=== PATIENT | male | born 1975 | race Caucasian/White ===

== ENCOUNTER 2017-08-16 15:51 | Emergency (ER) | payer OTHER, MEDICAID ==
[~2017-08-16] VITALS: Ht 172.7 cm; Wt 161.5 kg
[~2017-08-16 15:51] MED LIST: GABA800T PO; OMEP40CA2 PO; OXYC-396 PO; VENTAER INH
[2017-08-16 15:57] VITALS: BP 171/80; PULSE 68; RESP 16; TEMP 98.5; O2SAT 97
[2017-08-16] MEDS ORDERED: NON-325T2 PO (16:12)
[2017-08-16] MEDS ORDERED: SUCR1TAB PO (16:12)
[2017-08-16] MEDS ORDERED: MULTTAB67 PO (16:12)
[2017-08-16] MEDS ORDERED: IRONTAB5 PO (16:12)
[2017-08-16] MEDS ORDERED: FENT50DI T-DERMAL (16:12)
[2017-08-16] MEDS ORDERED: RANI300T PO (16:12)
[2017-08-16] MEDS ORDERED: APIX5TAB PO (16:12)
[2017-08-16] MEDS ORDERED: OXYC-426 PO (16:12)
[2017-08-16] MEDS ORDERED: CYAN100025 SL (16:12)
[2017-08-16] MEDS ORDERED: CALCTAB19 PO (16:12)
[2017-08-16] MEDS ORDERED: MONT10TA4 PO (16:12)
[2017-08-16] MEDS ORDERED: IBUP-232 PO (17:04)
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
== END 2017-08-16 17:35 | disposition home or self-care (01) ==
LOC: PHEFT 15:51
DX: M25.552 Pain in left hip (principal); M25.551 Pain in right hip; G89.29 Other chronic pain; M87.852 Other osteonecrosis, left femur; M87.851 Other osteonecrosis, right femur; E11.9 Type 2 diabetes mellitus without complications; I10 Essential (primary) hypertension; Z72.0 Tobacco use; Z76.0 Encounter for issue of repeat prescription
CPT/HCPCS: 99283

== ENCOUNTER → 2017-10-19 | Outpatient (CLI) | payer OTHER, MEDICAID ==
[~2017-10-19] MED LIST changes: +APIX5TAB PO; +CALCTAB19 PO; +CYAN100025 SL; +FENT50DI T-DERMAL; +IBUP-232 PO; +IRONTAB5 PO; +MONT10TA4 PO; +MULTTAB67 PO; +NON-325T2 PO; -OXYC-396 PO; +OXYC-426 PO; +RANI300T PO; +SUCR1TAB PO
== END ==
LOC: HRSP 12:44
PROVIDERS: ATTEND Internal Medicine
DX: J45.909 Unspecified asthma, uncomplicated (principal)
CPT/HCPCS: 94060; 94618; 94726; 94729; 95012